=== PATIENT | female | born 1990 | race American Indian/Alaskan Native ===

== ENCOUNTER 2017-05-12 08:00 | Emergency (ER) | payer MEDICAID, OTHER ==
[2017-05-12 08:13] VITALS: BP 142/78
[2017-05-12] MEDS ORDERED: NORCO 5/325 PO ONE (11:32)
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
[2017-05-12] MEDS ORDERED: FUL-GLO OP ONE (11:35)
[2017-05-12] MEDS ORDERED: TETRACAINE 0.5% ONE (11:35)
[2017-05-12] MEDS ORDERED: BSS ONE (11:35)
[2017-05-12] MEDS ORDERED: BSS 1 DROPS, TETRACAINE 0.5% 1 DROPS, FUL-GLO 0.6 MG OD ONE (11:36)
[2017-05-12] MEDS ORDERED: TYLENOL PO ONE (11:38)
[2017-05-12] MEDS ORDERED: PEPCID IV ONE (11:38)
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
== END 2017-05-12 13:21 | disposition home or self-care (01) ==
LOC: ED 08:00
DX: S05.02XA Injury of conjunctiva and corneal abrasion without foreign body, left eye, initial encounter (principal); H11.32 Conjunctival hemorrhage, left eye; K02.9 Dental caries, unspecified; Z98.51 Tubal ligation status; Y04.0XXA Assault by unarmed brawl or fight, initial encounter; Y93.89 Activity, other specified; Y99.8 Other external cause status; Y92.410 Unspecified street and highway as the place of occurrence of the external cause
CPT/HCPCS: 70150

== ENCOUNTER 2021-05-12 08:25 | Emergency (ER) | payer MEDICAID ==
[2021-05-12 08:39] VITALS: BP 140/87
[2021-05-12 09:51] LABS: Bacteria,Urine 1+ /HPF (Negative); Bilirubin,Urine NEG (Negative); Blood,Urine SM (Negative); Color,Urine Straw (Yellow); Mucus,Urine FEW /HPF; Protein,Urine <15 mg/dL mg/dL (Negative); Urobilinogen,Urine < 2.0 mg/dL (<2.0)
[2021-05-12 11:25] LABS: HCG Qualitative,Urine Negative (Negative)
--- NOTE | 2021-05-12 12:18 | Emergency Department Report ---
ED General Adult HPI - General Chief complaint: Urogenital-Female Stated complaint: YEAST INFECTION Time Seen by Provider: 05/12/21 11:09 Source: patient Mode of arrival: Ambulatory Limitations: No Limitations - History of Present Illness Initial comments: 31-year-old -[place]in[place] female patient presents with complaints of itchiness and outer vaginal irritation x4 days. Patient states her symptoms began 3 days after starting amoxicillin for sinus infection and that she believes she has a yeast infection. She denies any dysuria, hematuria, urinary frequency, vaginal discharge, dyspareunia, vaginal bleeding, or abdominal pain. She has not tried any OTC medications for symptoms. She states past medical history does include prediabetes - Related Data Home Medications Medication Instructions Recorded Confirmed Last Taken Vits96/Iron Fum/Folic 1 tab PO DAILY 08/24/13 08/29/13 08/23/13 [ Tablet] 1 valACYclovir [Valtrex] 500 mg PO DAILY 08/24/13 08/29/13 08/23/13 19:00 500 Previous Rx's Medication Instructions Recorded Last Taken Type Ibuprofen [Motrin] 800 mg PO Q8H PRN #30 tablet 08/24/13 Unknown Rx oxyCODONE /ACETAMINOPHEN [Percocet 1 - 2 tab PO Q4HR PRN #30 tablet 08/24/13 Unknown Rx 5/325 mg] DOXYCYCLINE Hyclate [Vibramycin 100 mg PO BID #14 capsule 08/29/13 Unknown Rx CAP] HYDROcodone/APAP 10-325 [[place] 1 each PO Q6HR PRN #20 tablet 08/29/13 Unknown Rx 10/325] Acetaminophen/Codeine [Tylenol 1 tab PO Q6H PRN #9 tab 05/12/17 Unknown Rx /Codeine # 3 tab] Gentamicin 0.3% Ophth Soln 2 drops OP Q8H 7 Days #1 bottle 05/12/17 Unknown Rx Penicillin V Potassium 500 mg PO Q8H 10 Days #30 tablet 05/12/17 Unknown Rx Fluconazole [Diflucan TAB] 200 mg PO QDAY #2 tablet 05/12/21 Unknown Rx Allergies Allergy/AdvReac Type Severity Reaction Status Date / Time No Known Allergies Allergy Unverified 08/24/13 05:26 ED Review of Systems ROS: Stated complaint: YEAST INFECTION Other details as noted in HPI Constitutional: denies: chills, fever, malaise Gastrointestinal: as per HPI Genitourinary: as per HPI Skin: denies: rash, lesions, change in color Hematological/Lymphatic: denies: swollen glands ED Past Medical Hx - Past Medical History Hx Hypertension: No Hx Congestive Heart Failure: No Hx Diabetes: No Hx Deep Vein Thrombosis: No Hx Renal Disease: No Hx Sickle Cell Disease: No Hx Seizures: No Hx Asthma: No Hx COPD: No Hx HIV: No - Surgical History Additional Surgical History: x 3. Tubal - Social History Smoking Status: Never Smoker Substance Use Type: Alcohol - Medications Home Medications: Home Medications Medication Instructions Recorded Confirmed Last Taken Type Ibuprofen [Motrin] 800 mg PO Q8H PRN #30 tablet 08/24/13 08/29/13 Unknown Rx Vits96/Iron Fum/Folic 1 tab PO DAILY 08/24/13 08/29/13 08/23/13 History [ Tablet] 1 oxyCODONE /ACETAMINOPHEN [Percocet 1 - 2 tab PO Q4HR PRN #30 tablet 08/24/13 08/29/13 Unknown Rx 5/325 mg] valACYclovir [Valtrex] 500 mg PO DAILY 08/24/13 08/29/13 08/23/13 19:00 History 500 DOXYCYCLINE Hyclate [Vibramycin 100 mg PO BID #14 capsule 08/29/13 Unknown Rx CAP] HYDROcodone/APAP 10-325 [[place] 1 each PO Q6HR PRN #20 tablet 08/29/13 Unknown Rx 10/325] Acetaminophen/Codeine [Tylenol 1 tab PO Q6H PRN #9 tab 05/12/17 Unknown Rx /Codeine # 3 tab] Gentamicin 0.3% Ophth Soln 2 drops OP Q8H 7 Days #1 bottle 05/12/17 Unknown Rx Penicillin V Potassium 500 mg PO Q8H 10 Days #30 tablet 05/12/17 Unknown Rx Fluconazole [Diflucan TAB] 200 mg PO QDAY #2 tablet 05/12/21 Unknown Rx ED Physical Exam - General Limitations: No Limitations General appearance: alert, in no apparent distress, obese - Head Head exam: Present: atraumatic, normocephalic - Eye Eye exam: Present: normal appearance - Respiratory Respiratory exam: Absent: respiratory distress - Cardiovascular Cardiovascular Exam: Present: regular rate - GI/Abdominal GI/Abdominal exam: Present: soft. Absent: tenderness - External exam: Present: other (Patient declined exam) - Neurological Exam Neurological exam: Present: alert, oriented X3 - Psychiatric Psychiatric exam: Present: normal affect, normal mood - Skin Skin exam: Present: warm, dry, intact, normal color. Absent: rash ED Course Vital Signs 05/12/21 08:38 Temperature 98.7 F Pulse Rate 69 Respiratory 20 Rate Blood Pressure 140/87 O2 Sat by Pulse 100 Oximetry ED Medical Decision Making - Medical Decision Making 31-year-old -[place] female patient presents with complaints of itchiness and outer vaginal irritation x4 days. Patient states her symptoms began 3 days after starting amoxicillin for sinus infection and that she believes she has a yeast infection. She denies any dysuria, hematuria, urinary frequency, vaginal discharge, dyspareunia, vaginal bleeding, or abdominal pain. She has not tried any OTC medications for symptoms. She states past medical history does include prediabetes Patient declined exam, however history is consistent with likely yeast vaginitis. She denies any skin lesions or history of stroke herpes she also denies any pain. Will treat with Diflucan. Recommend follow-up with PCP in 3 to 5 days. She is otherwise well-appearing, her vitals are normal, she is stable for discharge home. Discussed in detail signs and symptoms that should prompt immediate return to ED with patient who verbalizes understanding Critical care attestation.: If time is entered above; I have spent that time in minutes in the direct care of this critically ill patient, excluding procedure time. ED Disposition Clinical Impression: Vaginitis Disposition: HOME / SELF CARE / HOMELESS Is pt being admited?: No Condition: Stable Instructions: Vaginal Yeast Infection, Adult Prescriptions: Fluconazole [Diflucan TAB] 200 mg PO QDAY #2 tablet Referrals: PRIMARY CARE, [Primary Care Provider] - 3-5 Days Forms: Work/School Release Form(ED)
== END 2021-05-12 12:26 | disposition home or self-care (01) ==
LOC: ED 08:25
DX: N76.0 Acute vaginitis (principal)
CPT/HCPCS: 81001; 81025; 99283